=== PATIENT | male | born 1990 | race Caucasian/White ===

== ENCOUNTER 2017-08-21 09:04 | Emergency (ER) | payer MEDICAID, OTHER ==
--- NOTE | 2017-08-21 09:17 | EDM.PDOC ---
ED HPI GENERAL MEDICAL PROBLEM - General Stated Complaint: BACK PAIN Time Seen by Provider: 08/21/17 09:17 Source of Information: Reports: Patient, RN, RN Notes Reviewed History Limitations: Reports: No Limitations - History of Present Illness INITIAL COMMENTS - FREE TEXT/NARRATIVE: Pt presents to the ER with c/o muscle spasms and low back pain. He states he has had issues with this in the past and he has not injured the area. He states He has been working with physical therapy, but today the pain is not tolerable. 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 Pain when he turns his head, and down the right leg with movement. 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 [No Known Home Meds] 08/21/17 [History] ED ROS GENERAL - Review of Systems Review Of Systems: ROS reveals no pertinent complaints other than HPI. ED EXAM,LOWER BACK PAIN/INJURY - Physical Exam Exam: See Below Exam Limited By: No Limitations General Appearance: Alert, WD/WN, Moderate Distress Eye Exam: Bilateral Eye: EOMI, Normal Inspection, PERRL Ears: Normal External Exam, Hearing Grossly Normal Nose: Normal Inspection Throat/Mouth: Normal Inspection, Normal Voice, No Airway Compromise Head: Atraumatic, Normocephalic Neck: Normal Inspection, Supple, Non-Tender, Full Range of Motion Respiratory/Chest: No Respiratory Distress, Lungs Clear, Normal Breath Sounds, No Accessory Muscle Use, Chest Non-Tender Cardiovascular: Normal Peripheral Pulses, Regular Rate, Rhythm, No Edema, No Gallop, No JVD, No Murmur, No Rub GI/Abdominal: Normal Bowel Sounds, Soft, Non-Tender, No Organomegaly, No Distention, No Abnormal Bruit, No Mass (Male) Exam: Deferred Rectal (Males) Exam: Deferred Back Exam: Normal Inspection, Full Range of Motion, NT Extremities: Normal Inspection, Normal Range of Motion, Non-Tender, No Pedal Edema, Normal Capillary Refill Neurological: Alert, Normal Mood/Affect, Normal Dorsiflexion, CN II-XII Intact, Normal Plantar Flexion, Normal Gait, Normal Reflexes, No Motor/Sensory Deficits , Oriented x 3 Psychiatric: Normal Affect, Normal Mood Skin Exam: Warm, Dry, Intact, Normal Color, No Rash Lymphatic: No Adenopathy Course - Vital Signs Last Recorded V/S: Last Vital Signs Temp 98.4 F 08/21/17 09:18 Pulse 70 08/21/17 09:18 Resp 16 08/21/17 09:18 BP 135/84 08/21/17 09:18 Pulse Ox 100 08/21/17 09:18 - Orders/Labs/Meds Orders: Active Orders 24 hr Category Date Time Status Ketorolac [Toradol] Med 08/21/17 09:24 Once 60 mg IM ONETIME ONE Orphenadrine [Norflex] Med 08/21/17 09:30 Ordered 60 mg IM Q12H Departure - Departure Time of Disposition: Disposition: Home, Self-Care 01 Condition: Fair Clinical Impression: Lumbar radiculopathy Sciatica Qualifiers: Laterality: right Qualified Code(s): M54.31 - Sciatica, right side - Discharge Information Instructions: Back Injury Prevention, [id number], Muscle Strain, [id number] , Back Pain, Adult, [id number] Forms: ED Department Discharge Additional Instructions: RX: Norflex, Diclofenac Follow up with physical therapy and/or massage Follow up with your primary care facility as necessary - My Orders Last 24 Hours: My Active Orders 08/21/17 09:24 Ketorolac [Toradol] 60 mg IM ONETIME ONE 08/21/17 09:30 Orphenadrine [Norflex] 60 mg IM Q12H - Assessment/Plan Last 24 Hours: My Active Orders 08/21/17 09:24 Ketorolac [Toradol] 60 mg IM ONETIME ONE 08/21/17 09:30 Orphenadrine [Norflex] 60 mg IM Q12H
[2017-08-21] MEDS ORDERED: Ketorolac 30 MG/ML SDV IM ONE (09:24)
== END 2017-08-21 09:50 | disposition home or self-care (01) ==
LOC: DL.ED 09:04
DX: M54.16 Radiculopathy, lumbar region (principal); M54.41 Lumbago with sciatica, right side
CPT/HCPCS: 96372; 99282; J1885; J2360